=== PATIENT | female | born 1930 | race Two or more races ===

== ENCOUNTER 2016-07-13 08:13 | Inpatient (IN) | payer MEDICARE, OTHER ==
[~2016-07-13] VITALS: Ht 147.3 cm; Wt 45.4 kg
[2016-07-13] MEDS ORDERED: ONDANSETRON HCL/PF 4 MG/2 ML VIAL ONE (08:15)
[2016-07-13] MEDS ORDERED: MORPHINE SULFATE INJ 4 MG/ML DISP.SYRIN ONE (08:15)
--- NOTE | 2016-07-13 08:20 | NUR ---
PT PERLA FROM HOME S/P FALL COMPLAINING OF PAIN 10/10 ON LEFT SHOULDER AND ARM. DENIES KO. DENIES HEAD TRAUMA. PT AAOX3. FAMILY MEMBER AT BS FOR ADDITIONAL INFO. ELEVATED BP NOTED. MD AT BS FOR EVAL. PLACED ON O2 VIA NC. IV ACCESS STARTED. BLOOD DRAWN FOR LABS. SAFETY AND COMFORT MEASURES PROVIDED. WILL MONITOR.
--- NOTE | 2016-07-13 08:23 | NUR ---
PT MEDICATED ORDERED.
--- NOTE | 2016-07-13 08:28 | NUR ---
MOOSE MONSIVAIS AT BS.
[2016-07-13] MEDS ORDERED: MORPHINE SULFATE INJ 2 MG/ML DISP.SYRIN IV ONE ×2 (08:30→09:00)
[2016-07-13] MEDS ORDERED: ONDANSETRON HCL/PF 4 MG/2 ML VIAL IVP ONE (08:30)
[2016-07-13 08:40] LABS: BASOPHILS % (AUTO) 0.4 % (0.0-2.0); EOSINOPHILS # (AUTO) 0.1 /CMM (0.0-0.7); EOSINOPHILS % (AUTO) 2.2 % (0.0-6.0); HEMATOCRIT 35 % (33-45); HEMOGLOBIN 11.6 g/dL (11.5-14.8); LYMPHOCYTES % (AUTO) 35.9 % (20.0-44.0); MEAN CORPUSCULAR HEMOGLOBIN 26 PG (26.0-33.0); MEAN CORPUSCULAR HGB CONC 33 g/dl (31.0-36.0); MEAN CORPUSCULAR VOLUME 79 fL (82-100); MONOCYTES # (AUTO) 0.4 /CMM (0.1-1.30); MONOCYTES % (AUTO) 7.8 % (2.0-12.0); NEUTROPHILS % (AUTO) 53.7 % (43.0-81.0); PLATELET COUNT (AUTO) 195 /CMM (150-450); RDW COEFFICIENT OF VARIATION 15.3 (11.5-15.0); WHITE BLOOD COUNT (AUTO) 5.7 K/uL (4.3-11.0)
[2016-07-13 08:50] LABS: CALCIUM, SERUM 8.7 mg/dL (8.5-10.1); CARBON DIOXIDE 26 mmol/L (21-32); CHLORIDE 104 mmol/L (98-107); CREATININE 0.8 mg/dL (0.6-1.3); GLUCOSE 162 mg/dL (74-106); POTASSIUM 3.6 mmol/L (3.5-5.1); SODIUM SERUM 140 mmol/L (136-145); UREA NITROGEN, BLOOD 14 mg/dL (7-18)
[2016-07-13] MEDS ORDERED: MORPHINE SULFATE INJ 2 MG/ML DISP.SYRIN ONE (08:55)
[2016-07-13 08:59] LABS: TROPONIN I < 0.017 ng/mL (0.00-0.056)
[2016-07-13 09:01] LABS: INR 0.95 (0.87-1.13); PROTHROMBIN TIME 10.1 SECS (9.5-12.7)
--- NOTE | 2016-07-13 10:05 | NUR ---
Paged PMD Dr Ankit Colbert.
--- NOTE | 2016-07-13 10:09 | NUR ---
ortho on-call paged
--- NOTE | 2016-07-13 10:42 | NUR ---
GAVE REPORT TO RUPESH JIMENEZ 326 DX LEFT HUMERAL NECK FX AND RT PATELLAR FX. DR DAY ADMITTING.
[2016-07-13 11:00] VITALS: BP_SYST 151; BP_SYST 159; BP_DIAS 69
--- NOTE | 2016-07-13 11:00 | NUR ---
m/s grease refining supervisor: admission admitted this 85 yr old female pt from [facility] with dx: s/p fall and right knee fx. pt has a sling in place to her left arm with right knee immobilizer. pt wearing her own clothes at time of admission, unable to fully do skin assessment due to clothing and pain. pt can tolerate pain at this time and okay when she is not moving. family at bedside. oriented to room and surroundings. instructed to call for assistance. will continue to monitor. will continue to monitor.
[2016-07-13] MEDS ORDERED: ACYC800T PO (11:30)
[2016-07-13] MEDS ORDERED: ALPR0.25 PO (11:32)
[2016-07-13] MEDS ORDERED: FERR325T28 PO (11:32)
[2016-07-13] MEDS ORDERED: ATOR40TA PO (11:32)
[2016-07-13] MEDS ORDERED: ALEN70TA3 GT (11:32)
[2016-07-13] MEDS ORDERED: OMEP40CA37 PO (11:32)
--- NOTE | 2016-07-13 11:45 | NUR ---
m/s granulator operator: notes dr. boateng here and made aware of new admission. family remains at bedside. will continue to monitor.
[2016-07-13] MEDS ORDERED: ONDANSETRON HCL/PF 4 MG/2 ML VIAL IVP PRN (12:30)
[2016-07-13] MEDS ORDERED: MAGNESIUM HYDROXIDE 30 ML UDC PO PRN (12:30)
[2016-07-13] MEDS ORDERED: ACETAMINOPHEN 325 MG TABLET PO PRN (12:30)
[2016-07-13] MEDS ORDERED: Z GUARD REMEDY 2 OZ OINT TP PRN (12:30)
[2016-07-13] MEDS ORDERED: MAG HYDROX/AL HYDROX/SIMETH 30 ML UDC PO PRN (12:30)
[2016-07-13] MEDS ORDERED: ZOLPIDEM TARTRATE 5 MG TABLET PO PRN (12:30)
[2016-07-13] MEDS ORDERED: FERROUS SULFATE (325 MG) 325 MG/TAB TABLET PO SCH (13:00)
[2016-07-13] MEDS ORDERED: IV SET PRIMARY PUMP SET 1 EA INFUS.SET MC ONE (13:51)
[2016-07-13] MEDS: IV NS 0.9% 1,000 ML IV PRN (13:56)
[2016-07-13] MEDS: ENOXAPARIN SODIUM 40 MG/0.4 ML DISP.SYRIN SQ SCH (14:03)
[2016-07-13] MEDS: HYDROCODONE/APAP 5/325MG 1 EACH TABLET PO PRN ×2 (15:44→23:37)
--- NOTE | 2016-07-13 15:44 | NUR ---
m/s tectonophysicist: notes c/o 10/15 right knee pain, medicated with norco 1 tab po as ordered. instructed to call for assistance. will continue to monitor.
[2016-07-13] MEDS: ALPRAZOLAM 0.25 MG TABLET PO PRN (15:49)
--- NOTE | 2016-07-13 15:49 | NUR ---
M/S CONTACT CENTER PROFESSIONAL: NOTES PT GETTING PANIC ATTACKS, MEDICATED WITH XANAX O.25MG PO ORDERED. PER PT SHE GETS THIS ONCE IN A WHILE. DAUGHTER REMAINS AT BEDSIDE. WILL CONTINUE TO MONITOR.
[2016-07-13 16:00] VITALS: BP 149/69
--- NOTE | 2016-07-13 16:30 | NUR ---
m/s semiconductor development technician: notes daughter handed the phone to nurse and spoke to pt's own doctor (tom martinez) and per pt's md pt is having a seizure, pt had a history of seizure and has stopped for a year now, pt was taking antiseizure med before, but don't know the medication per md, and he me to ask the daughter, she might know as stated. when assess by staff, pt is awake, alert and oriented and no s/s of seizure noted. dr. martinez insisted pt is having a seizure and needs a antiseizure medication and a neurologist romeo as stated. informed md that pt is having anxiety attacks and not having a seizure, md got upset and still insisted pt is having a seizure. paged dr. boateng. pt and daughter made aware.
--- NOTE | 2016-07-13 16:40 | NUR ---
m/s skidder driver: notes dr. boateng called back and informed md re: pt's own md thinks that pt is a having a seizure and needs med and neurologist f/u. informed md that pt had anxiety attacks earlier, but no s/s of seizure noted. received telephone order from dr. boateng to given ativan 1mg ivp every hour prn for seizure. order read back and carried out. pt and daughter made aware. 2d echo being done at this time. will continue to monitor.
--- NOTE | 2016-07-13 16:44 | NUR ---
m/s technical mgr: notes pt feels okay and no pain as stated. daughter and niece at bedside. awaiting for pharmacist to verify ativan and will administer by rn. pt understood instructions. will continue to monitor.
[2016-07-13] MEDS ORDERED: LORAZEPAM INJ 2 MG/ML VIAL IV PRN (17:00)
--- NOTE | 2016-07-13 18:15 | NUR ---
m/s pouako kura kaupapa maori: notes pt having dinner. pt verbalized relief of her panic attacks, stated, "i get this once in a while and body reacts in a different way." daughter assisting pt with meal. no c/o pain or any discomfort. left arm sling remain in place and right knee immobilizer in place. pt has difficulty turning due to pain, still unable to do full skin assessment. instructed to call for assistance. will continue to monitor.
--- NOTE | 2016-07-13 18:50 | NUR ---
m/s stove carriage operator: ortho consult seen and examined by dr. sesar hill with no new order at this time. no need for surgery per ortho. pt and daughter verbalized understanding. pt may use sling only for comfort and may remove if tolerate for physical therapy treatment tomorrow. and if pt continue to have pain on her left shoulder, pt can have outpatient mri per ortho. pt and daughter understood instructions. will continue to monitor.
--- NOTE | 2016-07-13 19:00 | NUR ---
m/s outside residential sales professional: notes report given to ana (rafael) for continuity of care.
--- NOTE | 2016-07-13 19:10 | NUR ---
MS/RN NOTES RECEIVED PT FROM [facility] IN STABLE CONDITION. EASILY AWAKEN. A&OX4. O2 2L VIA NC WITH NO SOB NOTED. R AC IV WITH NS @ 75 ML/HR INFUSING WELL. R KNEE IMMOBILIZER INTACT, TOES WARM TO TOUCH, +MOVEMENT, +PEDAL PULSES. L ARM SLING IN PLACE. NO COMPLAINTS OF PAIN AT THIS TIME. PATIENT AND HER DAUGHTER (ASHLEY) MADE AWARE OF PLAN OF CARE INCLUDING BLOOD DRAWN IN AM AND IMPORTANCE OF TURNING AND REPOSITIONING. BOTH VERBALIZED UNDERSTANDING. NO CONCERNS MADE. BED AT LOWEST POSITION AND LOCKED, HOB UP, SIDE TABLE AND CALL MACK WITHIN REACH, BED ALARM ON. WILL CONTINUE TO MONITOR. DAUGHTER AT BEDSIDE.
[2016-07-13 19:58] LABS: APPEARANCE,URINE CLEAR (CLEAR); BILIRUBIN,URINE NEGATIVE (NEGATIVE); BLOOD, URINE NEGATIVE Ery/uL (NEGATIVE); COLOR,URINE YELLOW (YELLOW); KETONES,URINE NEGATIVE (NEGATIVE); LEUKOCYTE ESTERASE ,URINE NEGATIVE (NEGATIVE); NITRITE, URINE NEGATIVE (NEGATIVE); PROTEIN,URINE NEGATIVE (NEGATIVE); UGLUCOSE NEGATIVE (NEGATIVE); UROBILINOGEN,URINE 0.2 EU/dL (0.2)
[2016-07-13 20:00] VITALS: BP 121/57
[2016-07-13] MEDS ORDERED: diphenhydrAMINE HCL 25 MG CAPSULE PO ONE ×2 (21:00)
[2016-07-14] MEDS: IV NS 0.9% 1,000 ML IV PRN ×2 (04:48→17:36)
--- NOTE | 2016-07-14 06:55 | NUR ---
MS/RN NOTES NO SIGNIFICANT CHANGES. NO SOB NOTED ON O2 2L VIA NC. IVF IN PROGRESS. L ARM SLING IN PLACE WITH C/O OF PAIN WHEN ARM IS MOVED. R KNEE IMMOBILIZER IN PLACE. NO COMPLAINTS AT THIS TIME. TURNED AND REPOSITIONED Q2H PT PERMITS. ALL NEEDS MET. BED ALARM ON. WILL ENDORSE TO AM SHIFT FOR CONTINUITY OF CARE.
[2016-07-14 07:26] LABS: BASOPHILS % (AUTO) 0.3 % (0.0-2.0); EOSINOPHILS # (AUTO) 0.1 /CMM (0.0-0.7); EOSINOPHILS % (AUTO) 1.8 % (0.0-6.0); HEMATOCRIT 29 % (33-45); HEMOGLOBIN 9.7 g/dL (11.5-14.8); LYMPHOCYTES % (AUTO) 17.6 % (20.0-44.0); MEAN CORPUSCULAR HEMOGLOBIN 26 PG (26.0-33.0); MEAN CORPUSCULAR HGB CONC 33 g/dl (31.0-36.0); MEAN CORPUSCULAR VOLUME 79 fL (82-100); MONOCYTES # (AUTO) 0.7 /CMM (0.1-1.30); MONOCYTES % (AUTO) 11.7 % (2.0-12.0); NEUTROPHILS % (AUTO) 68.6 % (43.0-81.0); PLATELET COUNT (AUTO) 149 /CMM (150-450); WHITE BLOOD COUNT (AUTO) 5.9 K/uL (4.3-11.0)
--- NOTE | 2016-07-14 07:55 | NUR ---
MS RN INITIAL NOTE REPORT RECEIVED AT THE BEDSIDE. PATIENT IS RESTING COMFORTABLY IN BED. NO SOB OR DISTRESS NOTED AT THIS TIME. PATIENT DENIES PAIN. BED IN A LOW POSITION, CALL LIGHT WITHIN PATIENT REACH. WILL CONTINUE TO MONITOR.
[2016-07-14 07:57] LABS: CALCIUM, SERUM 7.8 mg/dL (8.5-10.1); CREATININE 0.6 mg/dL (0.6-1.3); MAGNESIUM 1.8 mg/dL (1.8-2.4); PHOSPHORUS 3.3 mg/dL (2.5-4.9); POTASSIUM 3.8 mmol/L (3.5-5.1)
[2016-07-14 08:00] VITALS: BP 118/58
[2016-07-14] MEDS: ATORVASTATIN 40 MG TABLET PO SCH (08:24)
[2016-07-14] MEDS: FERROUS SULFATE (325 MG) 325 MG/TAB TABLET PO SCH (08:24)
[2016-07-14] MEDS: PANTOPRAZOLE 40 MG TABLET.DR PO SCH (08:24)
[2016-07-14] MEDS: ACYCLOVIR 800 MG TABLET PO SCH (08:24)
[2016-07-14] MEDS: HYDROCODONE/APAP 5/325MG 1 EACH TABLET PO PRN (09:38)
[2016-07-14 12:39] LABS: IRON, SERUM 59 ug/dl (50-175); TOTAL IRON BINDING CAPACITY 261 ug/dl (250-450)
--- NOTE | 2016-07-14 14:32 | NUR ---
Social service consult requested by Ramesh Wong for possible SNF placement. TAYLOR and embedded case manager Jaimie met with pt's sister Mohini and pt's daughter Smita outside of pt's room. The family is interested in pt. going to a rehab facility once discharged from [facility]. According to Mohini, pt. was seen by Physical Therapy. However, pt was unable to ambulate. line manager Jaimie to follow up with Physical therapist and physician for discharge planning. No other social service needs required at this time. SW is available if necessary. Addendum: 07/14/16 at 1442 by MARCOS VAZQUEZ Mohini would like to be contacted for any questions regarding plan of care or discharge planning since pt's daughter Smita speaks limited Malawian.
[2016-07-14 16:00] VITALS: BP 116/74
--- NOTE | 2016-07-14 18:39 | NUR ---
MS RN NOTES PATIENT REPORTS THAT SHE TAKES A MEDICATION CALLED TRAVATAN NIGHTLY FOR GLAUCOMA. CALLED MD TO SEE IF THE MEDICATION CAN BE CONTINUED. WAITING FOR RETURN CALL.
--- NOTE | 2016-07-14 19:19 | NUR ---
MS RN CLOSING NOTES NO SIGNIFICANT CHANGES IN PATIENT CONDITION THROUGHOUT THE SHIFT. NO SOB OR DISTRESS NOTED AT THIS TIME. PATIENT DENIES PAIN. BED IN A LOW POSITION, FAMILY IS AT THE BEDSIDE. DID NOT RECEIVE A RETURN CALL FROM DR TIAN ON PATIENT'S EYE DROPS. INFORMED RILEY WHITE, WHO WILL FOLLOW UP. PATIENT ENDORSED FOR GWEN.
--- NOTE | 2016-07-14 19:30 | NUR ---
RN NOTE; RECEIVED PT IN BED AWAKE AND ;ALERT, BREATHING EVENLY. NO SOB. NO DISTRESS. SKIN WARM AND DRY. LAVELL SLING AND L KNEE IMMOBILIZER IN PLACE. NO C/O PAIN OR DISCOMFORT AT THIS TIME. NEEDS ATTENDED. CALL LIGHT WITHIN REACH,. WILL CONT TO MONITOR .
[2016-07-14 20:00] VITALS: BP 115/55
--- NOTE | 2016-07-14 21:25 | NUR ---
RE PAGED DR. LEMUS TO CLARIFY THE IF LOVENOX SHOULD BE HELD OR GIVEN. PLT:[id number] , HG DROPPED FROM 11 TO 9.7 TODAY AND PT HAS R PATELLA FX. WILL WAIT FOR HIS CALL BACK.
[2016-07-14] MEDS: ENOXAPARIN SODIUM 40 MG/0.4 ML DISP.SYRIN SQ SCH (21:55)
--- NOTE | 2016-07-14 21:57 | NUR ---
RECEIVED A CALL BACK FROM DR. LEMUS . RELAYED THE HGB AND PLT LEVEL AND THE PT'S DX TO MD. PER DR. LEMUS OK TO GIVE THE LOVENOX. NO S/S OF ACTIVE BLEEDING NOTED. PT WAS MEDICATED ORDERED. WILL CONT TO MONITOR.
--- NOTE | 2016-07-15 05:14 | NUR ---
PT REPORTED SHE IS USING TRAVATAN EYE DROP ON HER BOTH EYES EVERY HS. SPOKE TO DR. LEMUS OVER THE PHONE AND GOT A NEW ORDER TO RESUME THE MEDICATION PT REPORTED. NEW ORDER NOTED .
--- NOTE | 2016-07-15 06:41 | NUR ---
RN NOTE; PT IN BED AWAKE AND ALERT. BREATHING EVENLY. NO SOB. NO DISTRESS. SKIN WARM AND DRY, RLE IMMOBILIZER AND LUE SLING IN PLACE W/ NO C/O NUMBNESS OR TINGLING SENSATION. NO S/S OF ABNORMAL BLEEDING . STILL IN NEED TO COLLECT STOOL SAMPLE. ASSISTED W. ADLS . CALL LIGHT WITHIN REACH. WILL CONT TO MONITOR AND WILL ENDORSE TO AM SHIFT FOR GWEN,.
[2016-07-15 07:36] LABS: BASOPHILS % (AUTO) 0.2 % (0.0-2.0); EOSINOPHILS % (AUTO) 0.9 % (0.0-6.0); HEMATOCRIT 27 % (33-45); HEMOGLOBIN 8.9 g/dL (11.5-14.8); LYMPHOCYTES # (AUTO) 1.3 /CMM (0.8-4.8); LYMPHOCYTES % (AUTO) 23.4 % (20.0-44.0); MEAN CORPUSCULAR HEMOGLOBIN 26 PG (26.0-33.0); MEAN CORPUSCULAR HGB CONC 33 g/dl (31.0-36.0); MEAN CORPUSCULAR VOLUME 79 fL (82-100); MONOCYTES # (AUTO) 0.6 /CMM (0.1-1.30); MONOCYTES % (AUTO) 11.9 % (2.0-12.0); NEUTROPHILS # (AUTO) 3.4 /CMM (1.8-8.9); NEUTROPHILS % (AUTO) 63.6 % (43.0-81.0); PLATELET COUNT (AUTO) 150 /CMM (150-450); RDW COEFFICIENT OF VARIATION 15.1 (11.5-15.0); RED BLOOD CELL COUNT(AUTO) 3.49 MIL/uL (4.0-5.2); WHITE BLOOD COUNT (AUTO) 5.4 K/uL (4.3-11.0)
[2016-07-15 07:55] LABS: CALCIUM, SERUM 7.5 mg/dL (8.5-10.1); CREATININE 0.5 mg/dL (0.6-1.3); MAGNESIUM 1.9 mg/dL (1.8-2.4); PHOSPHORUS 2.4 mg/dL (2.5-4.9); POTASSIUM 3.7 mmol/L (3.5-5.1)
[2016-07-15 08:00] VITALS: BP 133/54
--- NOTE | 2016-07-15 08:00 | NUR ---
MS RN RECEIVED ON BED,AWAKE,ALERT,ORIENTED X4,NOT IN ANY FORM OF DISTRESS, RESPIRATIONS EVEN AND UNLABORED,NO SOB NOTED, LUNGS ARE CLEAR,ABDOMEN SOFT,POSITIVE BOWEL SOUNDS,DENIES PAIN AT THIS TIME,NOTED TO HAVE RIGHT KNEE IMMOBILIZER, AND LEFT ARM SLING,ALL NEEDS ATTENDED.
--- NOTE | 2016-07-15 08:30 | NUR ---
MS LIN BREAKFAST SERVED,DUE MEDS GIVEN,TOLERATED WELL.
[2016-07-15] MEDS: ATORVASTATIN 40 MG TABLET PO SCH (08:40)
[2016-07-15] MEDS: FERROUS SULFATE (325 MG) 325 MG/TAB TABLET PO SCH ×2 (08:40→09:00)
[2016-07-15] MEDS: PANTOPRAZOLE 40 MG TABLET.DR PO SCH (08:40)
[2016-07-15] MEDS: ACYCLOVIR 800 MG TABLET PO SCH (08:40)
--- NOTE | 2016-07-15 09:50 | NUR ---
MS RN WAS SEEN BY DR. JAYLAN Bruce/ ORDERS MADE AND CARRIED OUT.
[2016-07-15] MEDS ORDERED: NEUTRA PHOS 1 POWD.PACKET PO ONE (11:30)
[2016-07-15] MEDS ORDERED: LACTULOSE 10 G/15 ML UDC (PYXIS) PO PRN (11:30)
--- NOTE | 2016-07-15 11:30 | NUR ---
MS RN WAS SEEN BY PT, SEATED ON A CHAIR,TOLERATED WELL.
[2016-07-15 16:00] VITALS: BP 114/52
--- NOTE | 2016-07-15 17:00 | NUR ---
MS RN PAGED DR. TIAN TO LET HER KNOW THAT PATIENT IS REFUSING BLOOD TRANSFUSION.
--- NOTE | 2016-07-15 18:20 | NUR ---
MS RN ON BED, NO DISTRESS NOTED,ALL NEEDS ATTENDED.
--- NOTE | 2016-07-15 19:30 | NUR ---
MS/SENIOR FUND ACCOUNTANT; RECEIVED PT IN BED AWAKE, ALERT AND ORIENTED. BREATHING NON LABORED.. O2 2L NC ON. DENIES PAIN. HAS ARM SLING ON LT ARM. RT KNEE SLIGHT SWOLLEN AND WITH IMMOBILIZER ON. IVF ON ON RAC. PT.' DAUGHTER AT THE BEDSIDE. BED ON LOWER POSITION AND LOCKED FOR SAFETY. SIDE RAILS ARE UP FOR SAFETY. CONTINUE TO MONITOR. CALL LIGHT WITHIN REACH.
[2016-07-15 20:00] VITALS: BP 116/56
[2016-07-15] MEDS: ENOXAPARIN SODIUM 40 MG/0.4 ML DISP.SYRIN SQ SCH (21:00)
--- NOTE | 2016-07-15 21:00 | NUR ---
MS/DNA SEQUENCING ASSOCIATE; PT REFUSED LOVENOX.
[2016-07-15] MEDS: ALPRAZOLAM 0.25 MG TABLET PO PRN (21:14)
[2016-07-15] MEDS ORDERED: LATANOPROST EYE DROP 0.005% 2.5 ML BOTTLE EACHEYE SCH (22:00)
[2016-07-15] MEDS: IV NS 0.9% 1,000 ML IV PRN (23:44)
--- NOTE | 2016-07-16 | NUR ---
MS/SEASONAL RECRUITER; SLEEPING AT THIS TIME. BREATHING NON LABORED.IVF ON PROGRESS.
--- NOTE | 2016-07-16 02:00 | NUR ---
MS/FOUNDATION DIGGER; SLEEPING AT THIS TIME. NO S/S OF DISTRES.
--- NOTE | 2016-07-16 06:43 | NUR ---
MS/FINANCIAL SALES ASSISTANT; SLEPT FAIRLY. IVF ON PROGRESS. VOIDING. NO BM. DENIES PAIN. CONTINUE TO MONITOR. AM CARE DONE BY THE BITUMEN PLANT OPERATOR. WILL ENDORSE TO THE DAY SHIFT NURSE.
--- NOTE | 2016-07-16 08:00 | NUR ---
MS RN NOTES PT A/O X4. NO SOB OR ANY S/S OF DISTRESS NOTED. IV IS INTACT AND PATENT. FAMILY MEMBER AT BEDSIDE. CALL LIGHT WITHIN REACH. BED IS IN LOW LOCKED POSITION. WILL CONTINUE TO MONITOR THROUGHOUT SHIFT.
[2016-07-16] MEDS: PANTOPRAZOLE 40 MG TABLET.DR PO SCH (08:03)
[2016-07-16 08:39] LABS: BASOPHILS % (AUTO) 0.5 % (0.0-2.0); EOSINOPHILS # (AUTO) 0.1 /CMM (0.0-0.7); EOSINOPHILS % (AUTO) 1.5 % (0.0-6.0); HEMATOCRIT 28 % (33-45); LYMPHOCYTES # (AUTO) 1.3 /CMM (0.8-4.8); LYMPHOCYTES % (AUTO) 26.1 % (20.0-44.0); MEAN CORPUSCULAR HEMOGLOBIN 26 PG (26.0-33.0); MEAN CORPUSCULAR HGB CONC 32 g/dl (31.0-36.0); MEAN CORPUSCULAR VOLUME 80 fL (82-100); MONOCYTES # (AUTO) 0.6 /CMM (0.1-1.30); MONOCYTES % (AUTO) 11.5 % (2.0-12.0); NEUTROPHILS % (AUTO) 60.4 % (43.0-81.0); PLATELET COUNT (AUTO) 152 /CMM (150-450); RDW COEFFICIENT OF VARIATION 15.5 (11.5-15.0); RED BLOOD CELL COUNT(AUTO) 3.52 MIL/uL (4.0-5.2); WHITE BLOOD COUNT (AUTO) 4.9 K/uL (4.3-11.0)
[2016-07-16] MEDS: ATORVASTATIN 40 MG TABLET PO SCH (08:51)
[2016-07-16] MEDS: FERROUS SULFATE (325 MG) 325 MG/TAB TABLET PO SCH (08:51)
[2016-07-16] MEDS: ACYCLOVIR 800 MG TABLET PO SCH (08:51)
[2016-07-16 08:54] LABS: CALCIUM, SERUM 7.8 mg/dL (8.5-10.1); CREATININE 0.4 mg/dL (0.6-1.3); MAGNESIUM 2.1 mg/dL (1.8-2.4); PHOSPHORUS 2.6 mg/dL (2.5-4.9); POTASSIUM 3.8 mmol/L (3.5-5.1)
[2016-07-16] MEDS ORDERED: ENOX40DI SQ (11:14)
[2016-07-16] MEDS ORDERED: LACT10SO6 PO (11:14)
--- NOTE | 2016-07-16 15:00 | NUR ---
PT BEING DISCHARGED TO [facility]. PT IS CURRENTLY IN STABLE CONDITION. CALLED [facility]HAB CENTER AND GAVE REPORT TO GABY REGARDING PATIENT. BELONGINGS HAVE BEEN ACCOUNTED FOR. ORDERS TO FOLLOW UP WITH PCP IN 3 DAYS AND ORTHO SCHEDULED HAVE BEEN NOTED. IV REMOVED. ID BAND REMOVED. DISCHARGE PROTOCOL FOLLOWED. REPORT GIVEN TO EMT AND PT TRANSFERRED IN STABLE CONDITION.
== END 2016-07-16 15:15 | DRG 563 ==
LOC: ER 08:15 → MED 10:41
PROVIDERS: ADMIT Internal Medicine; ATTEND Internal Medicine
DX: S82.001A Unspecified fracture of right patella, initial encounter for closed fracture (principal); W01.0XXA Fall on same level from slipping, tripping and stumbling without subsequent striking against object, initial encounter; Y92.009 Unspecified place in unspecified non-institutional (private) residence as the place of occurrence of the external cause; M19.90 Unspecified osteoarthritis, unspecified site; K21.9 Gastro-esophageal reflux disease without esophagitis; M81.0 Age-related osteoporosis without current pathological fracture; E66.9 Obesity, unspecified; E78.5 Hyperlipidemia, unspecified; F41.9 Anxiety disorder, unspecified; G40.909 Epilepsy, unspecified, not intractable, without status epilepticus; I10 Essential (primary) hypertension; I70.0 Atherosclerosis of aorta; M54.5 Low back pain; G89.29 Other chronic pain; Z87.891 Personal history of nicotine dependence; M25.512 Pain in left shoulder
CPT/HCPCS: 36415; 71010-TC; 73030-TC; 73110; 73564-TC; 80048-TC; 80061-TC; 81000-TC; 83540-TC; 83735-TC; 84100-TC; 84484-TC; 85025-TC; 85730-TC; 86850-TC; 86921-TC; 87081-TC; 87086-TC; 93307-TC; 94799-TC; 97001-TC; 97110-TC; 97530-TC; A4606; J1650; J2060; J2270; J2405; J7030; Z7610